=== PATIENT | female | born 1945 | race Caucasian/White ===

== ENCOUNTER 2024-04-17 06:36 | Day surgery (SDC) | payer MEDICARE, OTHER, SELFPAY ==
[2024-04-10 09:14] VITALS: BMI 27.7
--- NOTE | 2024-04-15 07:00 | EKG_ITS ---
[facility] Test Date: 2024-04-15 Pat Name: WANDA JANSEN Department: Room: - Gender: Female Special Education Associate: JOSEPH : 1945 Requested By: Michael Guillen Order Number: [id number] Reading MD: Michael Guillen Measurements Intervals [place] Rate: 63 P: 55 [place]: 162 QRS: -13 QRSD: 93 T: 48 QT: 395 QTc: 404 Interpretive Statements SINUS RHYTHM No previous ECG available for comparison /store/S0/[id number]
[2024-04-15 10:23] LABS: COVID-19 Antigen (In-House) Negative (Negative)
[2024-04-17] VITALS (14 sets, daily range): BP systolic 152–195; BP diastolic 66–90; PULSE 51–68; RESP 13–19; TEMP 36.4–37.1; O2SAT 92–99; BMI 28.4
[2024-04-17 07:05] LABS: Basophils # (Auto) 0.1 Thou/mm3 (0.0-0.2); Basophils % (Auto) 1 % (0-2.5); Eosinophils # (Auto) 0.7 Thou/mm3 (0.0-0.5); Eosinophils % (Auto) 6 % (0-10); Hematocrit 43.3 % (36.0-46.0); Hemoglobin 14.5 g/dL (12.0-16.0); Immature Granulocytes % (Auto) 0 % (0-0); Immature Granulocytes Auto 0.04 Thou/mm3 (0.00-0.00); Lymphocytes # (Auto) 2.8 Thou/mm3 (1.0-4.8); Lymphocytes % (Auto) 24 % (10-50); Mean Corpuscular HGB Conc 33.5 g/dl (31.0-37.0); Mean Corpuscular Hemoglobin 29.7 pg (25.0-35.0); Mean Corpuscular Volume 89 fL (80-100); Monocytes # (Auto) 1.1 Thou/mm3 (0.0-0.8); Monocytes % (Auto) 9 % (0-12); Neutrophils # (Auto) 7.3 Thou/mm3 (1.8-7.7); Neutrophils % (Auto) 60 % (37-80); Nucleated Red Blood Cell % 0 /100 WBC (0); Platelet Count 382 Thou/mm3 (140-440); RDW Standard Deviation 41.1 fL (36.4-46.3); Red Blood Count 4.89 Miln/mm3 (4.00-5.20)
[2024-04-17 07:27] LABS: Partial Thromboplastin Time 27.6 Seconds (22.0-36.0); Prothrombin Time 10.9 Seconds (9.0-12.2)
[2024-04-17 07:29] LABS: Anion Gap 7 (7-16); BUN/Creatinine Ratio 27 Ratio (12-20); Blood Urea Nitrogen 27 mg/dL (9-23); Calcium 9.6 mg/dL (8.3-10.6); Carbon Dioxide 26.2 mMol/L (20.0-31.0); Chloride 107 mMol/L (98-107); Estimated Creatinine Clearance 48.5 mL/min (>60); Glucose 169 mg/dL (74-106); Osmolality,Calculated 288 (275-295); Sodium 140 mMol/L (136-145); eGFR 57 See Note
[2024-04-17] MEDS: SODIUM CHLORIDE 0.45 % 100 ML IV (07:30)
[2024-04-17] MEDS: SODIUM CHLORIDE 0.45 % 500 ML 160 ML IV (08:05)
--- NOTE | 2024-04-17 08:07 | PD.CARDCATH ---
Cardiac Cath Procedure Procedure Narrative Date of the procedure 04/17/2024 Title of the procedure 1. Left heart catheterization 2. Left coronary angiogram 3. Right coronary angiogram 4. Left ventriculogram 5. Conscious sedation 6. Radiographic interpretation supervision 7. Ultrasound guidence for Right radial access Indication for the procedure This is a 79-year-old female with past medical history of hypertension hyperlipidemia Currently planning to undergo knee surgery Patient was complaining of atypical chest pain Cardiolite stress test was abnormal cardiac catheter and coronary angiogram recommended Procedure This is done in the cardiac lab under continuous electrocardiographic monitoring Intermittent blood pressure monitoring right radial arterial access obtained using modified Seldinger technique 6 Romanian radial sheath was placed under ultrasound guidence TIG catheter was used for selective injection of the Left coronary artery TIG cather was used for selective injection of the Right coroanry artery TIG cather was used for LV gram Findings Hemodynamics Left ventricular systolic function is 55% Left ventricular end-diastolic pressure is 18 mmHg Gradient across the aortic valve is 0 mm gradient Coronary anatomy Co-Dominance Left main coronary artery is Normal Left anterior descending artery is Luminal irregularities in the mid to distal segment Diagonal vessel is Luminal irregularities Left circumflex artery is Normal Obtuse marginal vessel is Luminal regularities Right coronary artery is 20% lesion approximately Posterior descending artery is Luminal irregularities Conclusion No significant coronary lesion Recommendation Continue medical management
--- NOTE | 2024-04-17 10:00 | PC.NURSE ---
TR band removed at this time. Surgical site asymptomatic, no active bleeding, no hematoma noted on right upper extremity or around the surgical site. Capillary refill < 3 seconds. No noted changes in color or temperature on right upper extremity. Patient denies general and localized pain, no loss in sensation, no tingling or numbness felt to right upper extremity. Tagaderm and Coban wrap applied. Will continue to monitor
--- NOTE | 2024-04-17 10:30 | PC.NURSE ---
Surgical site remains asymptomatic, no active bleeding, no hematoma noted on right upper extremity or around the surgical site. Capillary refill < 3 seconds. No noted changes in color or temperature on right upper extremity. Patient denies generalized and localized pain, no loss in sensation, no tingling or numbness felt to right upper extremity. Tagaderm and Coban wrap in place, clean, and dry. Will continue to monitor
== END 2024-04-17 11:46 | disposition home or self-care (01) ==
PROVIDERS: PCP Family Medicine; Referring Provider Internal Medicine; Visit Provider Internal Medicine
PROC: (CPT 93458; principal; 2024-04-17 07:45)
DX: I25.118 Atherosclerotic heart disease of native coronary artery with other forms of angina pectoris (principal); E78.5 Hyperlipidemia, unspecified; I10 Essential (primary) hypertension; Z01.810 Encounter for preprocedural cardiovascular examination
CPT/HCPCS: 93458; 36415; 80048; 85025; 85610; 85730; 87811; 93005; 99152; A4216; A4649; C1769; C1887; C1894; J0171; J0461; J0583; J1643; J2250; J2310; J2371; J3010; J3490; J7030; J7040; Q9967; J1644; J2305

== ENCOUNTER 2024-04-18 09:37 | Outpatient (AMB) | payer MEDICARE, OTHER, SELFPAY ==
[2024-04-18 10:05] VITALS: BP 157/84; PULSE 71; RESP 18; TEMP 36.6; O2SAT 95; BMI 28.3
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
== END 2024-04-18 10:34 | disposition home or self-care (01) ==
LOC: HODSRG 09:37
PROVIDERS: PCP Family Medicine; Referring Provider Family Medicine; Supervising Provider Orthopaedic Surgery Adult Reconstructive Orthopaedic Surgery; Visit Provider Orthopaedic Surgery Adult Reconstructive Orthopaedic Surgery
DX: M17.11 Unilateral primary osteoarthritis, right knee (principal); M25.561 Pain in right knee; I10 Essential (primary) hypertension; E78.00 Pure hypercholesterolemia, unspecified
CPT/HCPCS: 73564; 99203; G0463

== ENCOUNTER → 2024-04-18 | Outpatient (CLI) | payer MEDICARE, OTHER, SELFPAY ==
--- NOTE | 2024-04-18 11:22 | XR_ITS ---
Examination: Right knee 4 views TECHNIQUE: Standing AP oblique lateral axial right knee 4 views Exam date and time: April 18, 2024 1135 hours INDICATIONS: Right knee pain years. FINDINGS: Advanced tricompartment osteoarthritis, severe narrowing lateral joint space [id number] No fracture or dislocation Small knee effusion IMPRESSION: Advanced tricompartment osteoarthritis, including severe narrowing lateral joint space, [id number]
== END | disposition home or self-care (01) ==
PROVIDERS: PCP Family Medicine; Referring Provider Orthopaedic Surgery Adult Reconstructive Orthopaedic Surgery; Visit Provider Orthopaedic Surgery Adult Reconstructive Orthopaedic Surgery
DX: M17.11 Unilateral primary osteoarthritis, right knee (principal); M25.861 Other specified joint disorders, right knee
CPT/HCPCS: 73564

== ENCOUNTER 2024-05-02 10:41 | Outpatient (AMB) | payer MEDICARE, OTHER, SELFPAY ==
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
[2024-05-02 11:01] VITALS: BP 171/94; PULSE 64; RESP 18; TEMP 36.1; O2SAT 96; BMI 28.0
== END 2024-05-02 11:04 | disposition home or self-care (01) ==
PROVIDERS: PCP Family Medicine; Referring Provider Family Medicine; Supervising Provider Orthopaedic Surgery Adult Reconstructive Orthopaedic Surgery; Visit Provider Orthopaedic Surgery Adult Reconstructive Orthopaedic Surgery
DX: M17.11 Unilateral primary osteoarthritis, right knee (principal); M25.561 Pain in right knee; I10 Essential (primary) hypertension; E78.00 Pure hypercholesterolemia, unspecified
CPT/HCPCS: 99213; G0463

== ENCOUNTER → 2024-05-05 | Outpatient (CLI) | payer MEDICARE, OTHER, SELFPAY ==
--- NOTE | 2024-05-05 15:00 | XR_ITS ---
Examination: CT right lower extremity, without contrast. 2-D sagittal reconstructions. 2-D coronal reconstructions. 3-D reconstructions. Date and time of exam:May 05, 2024 1649 hours INDICATIONS: Right knee pain several years diagnosis unilateral primary osteoarthritis right knee CTDI: vol (mGy):14.5 DLP: (mGycm):1002 Technique: Multiple 1.25 mm axial sections of the right lower extremity without intravenous contrast have been obtained. 2-D sagittal and coronal reconstructions have been obtained. 3-D reconstructions have been obtained. Low dose protocols were performed. One or more of the following dose reduction techniques were used; automated exposure control, adjustment of the mA and/or KV according to patient size, use of iterative reconstruction technique. Findings: Moderate osteopenia Moderate narrowing right hip joint No right hip fracture or dislocation No avascular necrosis Advanced osteoarthritis narrowing medial lateral joint spaces, more severe lateral joint space Moderate narrowing patellofemoral joint with mild chronic lateral subluxation patella IMPRESSION: Moderate to advanced right knee tricompartment osteoarthritis, most severe lateral joint space
== END | disposition home or self-care (01) ==
PROVIDERS: PCP Family Medicine; Referring Provider Orthopaedic Surgery Adult Reconstructive Orthopaedic Surgery; Visit Provider Orthopaedic Surgery Adult Reconstructive Orthopaedic Surgery
DX: M17.11 Unilateral primary osteoarthritis, right knee (principal)
CPT/HCPCS: 73700

== ENCOUNTER 2024-05-12 08:30 | Day surgery (SDC) | payer MEDICARE, OTHER, SELFPAY ==
[2024-05-06 07:46] VITALS: BMI 28.0
[2024-05-06 09:03] LABS: Basophils % (Auto) 0 % (0-2.5); Eosinophils # (Auto) 0.4 Thou/mm3 (0.0-0.5); Eosinophils % (Auto) 3 % (0-10); Hematocrit 43.3 % (36.0-46.0); Hemoglobin 14.6 g/dL (12.0-16.0); Immature Granulocytes % (Auto) 0 % (0-0); Immature Granulocytes Auto 0.05 Thou/mm3 (0.00-0.00); Lymphocytes # (Auto) 2.3 Thou/mm3 (1.0-4.8); Lymphocytes % (Auto) 19 % (10-50); Mean Corpuscular HGB Conc 33.7 g/dl (31.0-37.0); Mean Corpuscular Hemoglobin 29.5 pg (25.0-35.0); Mean Corpuscular Volume 88 fL (80-100); Monocytes # (Auto) 1.1 Thou/mm3 (0.0-0.8); Monocytes % (Auto) 9 % (0-12); Neutrophils # (Auto) 8.1 Thou/mm3 (1.8-7.7); Neutrophils % (Auto) 68 % (37-80); Nucleated Red Blood Cell % 0 /100 WBC (0); Platelet Count 401 Thou/mm3 (140-440); RDW Standard Deviation 39.9 fL (36.4-46.3); Red Blood Count 4.95 Miln/mm3 (4.00-5.20); White Blood Count 11.9 Thou/mm3 (3.6-11.0)
[2024-05-06 09:07] LABS: Partial Thromboplastin Time 26.9 Seconds (22.0-36.0); Prothrombin Time 11.3 Seconds (9.0-12.2)
[2024-05-06 09:34] LABS: Alanine Aminotransferase 11 U/L (10-49); Albumin, Serum 4.7 gm/dL (3.4-4.8); Albumin/Globulin Ratio 1.7 (1.2-2.2); Alkaline Phosphatase 91 U/L (46-116); Anion Gap 9 (7-16); Aspartate Amino Transferase 12 U/L (0-34); BUN/Creatinine Ratio 19 Ratio (12-20); Bilirubin,Total 0.6 mg/dL (0.3-1.2); Blood Urea Nitrogen 17 mg/dL (9-23); Calcium 10.2 mg/dL (8.3-10.6); Calcium (Corrected) 10.2 mg/dL (8.5-10.1); Carbon Dioxide 27.5 mMol/L (20.0-31.0); Chloride 104 mMol/L (98-107); Creatinine (Component) 0.9 mg/dL (0.6-1.3); Estimated Creatinine Clearance 54.7 mL/min (>60); Globulin 2.7 gm/dL (2.3-3.5); Glucose 135 mg/dL (74-106); Osmolality,Calculated 282 (275-295); Potassium 4.5 mMol/L (3.4-5.1); Sodium 140 mMol/L (136-145); Total Protein 7.4 gm/dL (5.7-8.2); eGFR > 60 See Note
--- NOTE | 2024-05-09 15:25 | SUR.PREOP ---
Cardiac records reviewed with Dr Alarcon.
--- NOTE | 2024-05-09 15:25 | SUR.PREOP ---
WBC 11.9, Dr Recinos notified and ok to proceed with surgery.
[2024-05-12] VITALS (17 sets, daily range): BP systolic 113–158; BP diastolic 56–94; PULSE 56–71; RESP 12–20; TEMP 36.2–37.2; O2SAT 94–100; BMI 27.8; BMI 13.0
[2024-05-12] MEDS: ACETAMINOPHEN 325 MG TABLET 650 MG PO (09:29)
[2024-05-12] MEDS: MELOXICAM 7.5 MG TABLET PO (09:30)
[2024-05-12] MEDS: PREGABALIN 75 MG CAPSULE PO (09:30)
[2024-05-12] MEDS: RINGERS LACTATED 1000 ML 1,000 ML 20 ML IV (09:32)
--- NOTE | 2024-05-12 12:19 | XR_ITS ---
Examination: Right knee 2 views Technique one AP lateral right knee 2 views Exam date and time: May 12, 2024 1306 hours INDICATIONS: Postop total knee replacement FINDINGS: Total right knee replacement Satisfactory alignment No fracture IMPRESSION: Total right knee replacement with satisfactory alignment
--- NOTE | 2024-05-12 12:19 | PD.SUROPNT ---
Date of Procedure 05/12/24 Pre Op Diagnosis right knee osteoarthritis Post Op Diagnosis right knee osteoarthritis Procedure right total knee replacement Findings full thickness cartilage loss and osteophytes Procedure Description Indication: The patient is a 79 year old who has a long history of right knee pain. X-rays show degenerative arthritis involving the knee. Over the past several years the patient has had increasing pain, progressive limitation in function. He has failed conservative measures including activity modification, physical therapy, injections, anti-inflammatories, and assistive devices. After a lengthy discussion of the risks and benefits, the patient presents now for total knee replacement. The nature and purpose of the total knee replacement, alternative method(s) of treatment, the material risks involved, and the possibility of complications were fully explained to the patient. The patient was told the most common risks and complications associated with a total knee replacement include, but are not limited to blood clots in the leg, fatal pulmonary embolism, dislocation of the prosthesis, intraoperative and postoperative fractures of the femur or tibia, infection, failure of the prosthesis or grafting materials, complications from anesthesia, reactions to blood transfusions, postoperative leg length inequality, instability of the knee replacement, nerve damage or injury, vascular injury, delayed wound healing, infections, other injury or even . In addition, there are risks associated with anesthesia given during this operation, temporary or permanent numbness on the skin lateral to the incision can be a complication unique to total knee surgery, and kneeling can be painful after knee replacement surgery. Also, the patient was told that after undergoing a total knee replacement there may still be pain or disability. We discussed with the patient that we will be using a robot-assisted technology. We discussed that there is a possibility of converting to manual instrumentation. The patient was informed that the success of this operation in part depends upon the mechanical devices which are going to be implanted and that these devices can fail or malfunction, and may need to be repaired or replaced and there are no guarantees as to the longevity of this device or its part and that it or its parts could fail prematurely. Finally, the patient was asked to follow completely and fully with all advice and recommended treatments, and that recovery and ultimate outcome are affected by their compliance with recommended treatment. Surgical technique: Patient was marked and consented in the pre-operative area. The patient was brought to the operating room and placed on the operating table in a supine position. Prior to positioning, a timeout procedure was performed between the surgeon, the anesthesiologist, and the nursing staff where the patient and the operative side were identified and confirmed. After adequate general anesthetic was obtained, the right lower extremity was prepped and draped in the usual sterile fashion. A weight based dose of Cefazolin were administered within 1 hour prior to incision. The robot was preregistered and calirated before the incision. The extremity was exsanguinated with an esmarch badge and tourniquet inflated to 250mmHg. A midline incision was made. A median parapatellar arthrotomy was made. The patella was subluxed laterally. A medial release was performed to expose the medial tibia. His femoral and tibial pins were placed through an intra incisional manner for both cases. Every effort was made to ensure that the distalmost aspect of the pin was hung in the second cortex. The arrays were then tightened several times to ensure that it was fixed for the remainder of the case. Both femoral and tibial checkpoints were then placed. We then went through the registration process of the bone. We then assessed the knee deformity and attempted to correct it. We also used the robot to aid in judging laxity in both extension and flexion. Final based on laxity and alignment we changed the preoperative assessment to obtain proper proper implant positioning and to correct deformity. Attention was then placed to the tibia. We made a tibial cut using the robot ensuring that both the MCL and the patella tendon were protected with retractors. We then went to the femur and made the posterior cut followed by the anterior cut and the anterior chamfer. The bone was then removed and we made a distal femur cut and a posterior chamfer cut. We verified all cuts. A trial reduction was performed with a size 4 femoral component and a size 4 keeled tibial component. The patella tracked centrally, and no lateral retinacular release was necessary. The trial implants were removed. The arrays, pins, and checkpoints were all removed. We performed a verification that all pins were removed. The cut bone surfaces were lavaged. A size 4 right femoral component, a size 4 keeled tibial component were impacted into position using 2 bags of palacos. The knee was placed in extension until the cement hardened. The knee was felt to be well balanced in the sagittal and coronal plane. The final 4x11 mm cruciate-substituting articular insert was impacted into the tibial tray. The knee was brought out to full extension, flexed up to 120 degrees. It was stable to varus and valgus stress and appropriately balanced in flexion and extension. The wounds were copiously irrigated following deflation of tourniquet. The medial retinaculum was reapproximated with #1 vicryl and quill. The subcutaneous tissues were closed with 0 and 2-0 interrupted Vicryl. The skin was closed with 3-0 Monofilament V loc suture. A sterile dressing was applied. The patient was transferred to a bed and brought to recovery in stable condition. The patient tolerated the procedure well. There were no intraoperative complications. Sponge and needle counts were correct times 2. As the attending surgeon, I attest I was present and performed the entire operation. Grafts/Implants Size 4 CR Femur Size 4 Tibia 11mm poly CS 2 bags of palacos Anesthesia GETA Implants darryl Pathology / specimen None Pathology comment: none Estimated Blood Loss 150 Condition Stable Disposition same day Surgeon Mikie Recinos MD Surgical Staff Operation Date: 05/12/24 12:30 Case Staff Anesthesiologist: Alex Boss FLIGHT LINE MECHANIC: Guillermo Martinez RNbuffing wheel inspector: Cat Palafox
--- NOTE | 2024-05-12 12:43 | SUR.PHASEI ---
1243 Patient arrived to recovery resting comfortably in bed, drowsy and talking with staff, on oxygen 6L via oxy mask, breathing unlabored, vital signs stable, denies pain, dressing intact to right knee; prineo, telfa, abd, webril, melissa wraps, no bleeding noted, patient has good circulation to right lower extremity; skin color normal for patient and skin warm to touch, bilateral dorsalis pedis pulses present when palpated, post spinal anesthesia assessment complete patient has dermatome sensation at L4-patella, will monitor, report received from Dr. Boss and Gabriel MELENDREZ
--- NOTE | 2024-05-12 13:14 | SUR.PHASEI ---
1314 XRAY complete per MD order
--- NOTE | 2024-05-12 13:24 | SUR.PHASEI ---
0324 Called patients daughter to notify that patient is out of surgery doing well, all questions answered
--- NOTE | 2024-05-12 13:58 | SUR.PHASEI ---
1350 post spinal anesthesia assessment complete patient has dermatome sensation at S2 perineum
--- NOTE | 2024-05-12 14:00 | SUR.PHASEI ---
1400 patient working with incentive spirometer
--- NOTE | 2024-05-12 14:43 | SUR.PHASEII ---
patient attempted to work with physical therapy patient knee buckling, incomplete session, PT will try again in one hour
--- NOTE | 2024-05-12 15:43 | SUR.PHASEII ---
1543 patient cleared by physical therapy to proceed with discharge
--- NOTE | 2024-05-12 16:14 | SUR.PHASEII ---
1614 Patient meets discharge criteria from recovery, awake and alert, breathing unlabored, vital signs stable, denies pain, dressing intact; no bleeding noted, patient voided in the restroom prior to discharge, denies nausea, patient assisted with dressing into her clothing by this ticket writer, discharge instructions given to patient and patient daughter, daughter signed discharge instructions. Patient given all her belongings prior to discharge, transported via wheelchair and left in a private vehicle.
== END 2024-05-12 16:14 | disposition home or self-care (01) ==
PROVIDERS: Anesthesiology; PCP Family Medicine; Referring Provider Orthopaedic Surgery Adult Reconstructive Orthopaedic Surgery; Visit Provider Orthopaedic Surgery Adult Reconstructive Orthopaedic Surgery
PROC: (CPT 27447; principal; 2024-05-12 12:15)
DX: M17.11 Unilateral primary osteoarthritis, right knee (principal); M25.761 Osteophyte, right knee
CPT/HCPCS: 27447; 20985; 36415; 73560; 80053; 85025; 85610; 85730; 97162; A4217; C1713; C1776; J1100; J2250; J2405; J2704; J2795; J3490; J7030; J7120; J7999; A4648; A4649; A9270

== ENCOUNTER 2024-05-27 09:43 | Outpatient (AMB) | payer MEDICARE, OTHER, SELFPAY ==
[2024-05-27 10:26] VITALS: BP 138/83; PULSE 70; RESP 18; TEMP 36.7; O2SAT 97; BMI 27.1
--- NOTE | 2024-05-27 10:26 | PD.ORTHCLVIS ---
Vital signs 05/27/24 10:26 Height 1.7 m Height Method Stated Weight 78.528 kg Weight Measurement Method Standing Scale BMI 27.1 BP 138/83 H Blood Pressure Source Automatic Cuff Blood Pressure Location Right Upper Arm Position Sitting Respiration 18 Pulse 70 Pulse Source Monitor Temp 98.0 F Temp Source Temporal Artery Scan Pulse Oximetry (%) 97 Oxygen Delivery Method Room Air Med/Allergies Allergies & Medications Allergies No Known Allergies Allergy (Verified 05/27/24 10:27) Medication Reconciliation garlic 1,500 mg capsule 2,000 mg PO BID ##0 10/21/15 [History Confirmed 05/27/24] lisinopril 40 mg tablet 40 mg PO QDAY 04/17/24 [History Confirmed 05/27/24] calcium carbonate (Calcium 600) 1,200 mg PO QDAY 05/06/24 [History Confirmed 05/27/24] diltiazem HCl 240 mg capsule,24 hr,extended release (Tiadylt ER) 240 mg PO DAILY 05/06/24 [History Confirmed 05/27/24] omega 0-rrt-sjd-fish oil 1,200 mg (144 mg-216 mg) capsule (Fish Oil) 1 cap PO DAILY 05/06/24 [History Confirmed 05/27/24] plant stanol ronan 450 mg tablet 450 mg PO BID 05/06/24 [History Confirmed 05/27/24] acetaminophen 500 mg tablet (Acetaminophen Extra Strength) 1,000 mg (2 x 500 mg) PO Q6H PRN pain #90 tabs 05/12/24 [Rx Confirmed 05/27/24] aspirin 81 mg tablet,delayed release 81 mg PO BID #60 tabs 05/12/24 [Rx Confirmed 05/27/24] doxycycline hyclate 100 mg tablet 100 mg PO BID #14 tabs 05/12/24 [Rx Confirmed 05/27/24] gabapentin 300 mg capsule 300 mg PO .qhs #30 caps 05/12/24 [Rx Confirmed 05/27/24] oxycodone 5 mg tablet 5 mg PO Q6H PRN pain #28 tabs 05/12/24 [Rx Confirmed 05/27/24] sennosides 8.6 mg-docusate sodium 50 mg tablet (Senna-S) 1 tab-cap PO QDAY #30 tabs 05/12/24 [Rx Confirmed 05/27/24] Exam Exam Patient is in no acute distress and is cooperative with the examination today. Breathing is nonlabored. In no respiratory distress. Bilateral extremities were evaluated and demonstrates sensation intact to light touch. Palpable pedal pulses are present. No significant edema is present. Bilateral hips were examined. The patient has no pain with log roll of the hips. Internal rotation to 30 degrees and external rotation to 30 degrees is painless. Negative FADIR. Left knee was examined today. The right knee is in reasonable alignment. Range of motion from 0-120 degrees. Knee is stable to varus and valgus as well as AP translation with <5mm. Patient has a negative McMurrays. There is no pain with patellofemoral compression and no crepitus noted. The knee is nontender to palpation. Right knee incision is clean dry and intact. 0-100 Assessment and Plan Problem List (1) Arthritis of right knee: Status: Acute Plan: Patient is a pleasant 79-year-old female with right knee pain and right knee arthritis. Right total knee replacement is in good alignment and position. She is happy Plan Patient is doing well status post right total knee replacement. Will see her in 4 to 5 weeks for routine follow-up with x-rays. She is happy with her progress Advanced Care Planning Discussion Advance care planning discussed with:: patient Office Procedures GNS Level of Care Nursing/Assessment Patient Status: Established Patient Nursing Assessment/Reassesment: Medication Reconciliation, Update PMH in EMR and Vital Signs Coordination of Care: Complex Care and Chronic Disease 1-5, Education Complex Pt/Fam, Consent,records obtained, informed consent, Results/Orders obtained and Staff clarify orders Established Patient Charge Established Patient Point Assignment: 95 Established Patient Point Charge: EP Level 3 (80-115) MA Intake Visit Data Collection New Patient or Established: Established Patient (seen at [facility] within 3 years) Reason for Visit:: POST OP RT TKA Seen by Clinical Staff ONLY (RN/MA): No Verbal consent obtained for Telemed visit?: No 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: No PCP or OBGYN visit in last 3 months: Yes Hx Now: No Do You Feel Safe at Home: Yes Authorities Contacted: N/A Questionairres Past Medical History Past Medical History Have you ever been diagnosed with any of the following: Neurological Problems Seizures: No Cardiology Problems Hypercholesterolemia: Yes Congestive Heart Failure: No Hypertension: Yes Varicose Veins: Yes Respiratory Problems Chronic Obstructive Pulmonary Disease (COPD): No Smoking: No Smoking Exposure: No Genital/Urinary Problems Renal Disease: No Reproductive Problems Previous Pregnancies: Yes Musculoskeletal Problems Arthritis: Yes Head,Eye,Nose,Throat Problems Deafness: Yes ([place]) Endocrine Problems Diabetes Mellitus Type 1: No Diabetes Mellitus Type 2: No Other Problems Blood Transfusions: No Blood Transfusion Reaction: No Anesthesia Reactions: No MRSA: No Clostridium Difficile: No Cancer: No Surgical History Hysterectomy: Yes Subjective Visit Visit for: follow up visit, post op #1 and knee Immunization / Flu Flu Vaccine in the Last 12 Months: Yes Flu Vaccine Exclusion Criteria: Already Received History of Present Illness Chief complaint: 2 WEEK POST OP Jasmina is doing well status post right total knee replacement. She is 2 months postop. The pain is minimal and she is happy Pain Pain level (0-10): 5 Pain duration: COMES AND GOES Pain location: anterior Pain quality: dull and aching Pain timing: increases with activity Associated signs & symptoms: numbness Ambulatory data Ambulatory device: cane Treatments Improvement with previous injections: No Improvement with PT: No Improvement with NSAIDS: no Review of Systems Review of Systems: All systems negative unless otherwise noted in HPI.
== END 2024-05-27 10:52 | disposition home or self-care (01) ==
PROVIDERS: PCP Family Medicine; Referring Provider Family Medicine; Supervising Provider Orthopaedic Surgery Adult Reconstructive Orthopaedic Surgery; Visit Provider Orthopaedic Surgery Adult Reconstructive Orthopaedic Surgery
DX: M17.11 Unilateral primary osteoarthritis, right knee (principal); M25.561 Pain in right knee; Z96.651 Presence of right artificial knee joint; I10 Essential (primary) hypertension; E78.00 Pure hypercholesterolemia, unspecified
CPT/HCPCS: 99213; G0463

== ENCOUNTER → 2024-06-19 | Outpatient (CLI) | payer MEDICARE, OTHER, SELFPAY ==
--- NOTE | 2024-06-19 08:54 | XR_ITS ---
Examination: Right knee 4 views Technique: AP oblique lateral axial right knee 4 views Exam date and time: June 19, 2024 0901 hrs. Indications: Status post knee replacement April 2024 Findings: Total right knee arthroplasty. Satisfactory alignment No acute fracture No loosening of the prosthetic components No patellar dislocation Impression: Total right knee arthroplasty with satisfactory alignment
== END | disposition home or self-care (01) ==
LOC: CDIM 08:39
PROVIDERS: PCP Family Medicine; Referring Provider Orthopaedic Surgery Adult Reconstructive Orthopaedic Surgery; Visit Provider Orthopaedic Surgery Adult Reconstructive Orthopaedic Surgery
DX: M17.11 Unilateral primary osteoarthritis, right knee (principal); Z96.651 Presence of right artificial knee joint
CPT/HCPCS: 73564

== ENCOUNTER 2024-07-01 09:38 | Outpatient (AMB) | payer MEDICARE, OTHER, SELFPAY ==
--- NOTE | 2024-07-01 10:02 | PD.ORTHCLVIS ---
Vital signs 07/01/24 10:05 Height 1.7 m Height Method Stated Weight 79.01 kg Weight Measurement Method Standing Scale BMI 27.3 BP 183/79 H Blood Pressure Source Automatic Cuff Blood Pressure Location Right Upper Arm Position Sitting Respiration 18 Pulse 67 Pulse Source Monitor Temp 97.8 F Temp Source Temporal Artery Scan Pulse Oximetry (%) 95 Oxygen Delivery Method Room Air Med/Allergies Allergies & Medications Allergies No Known Allergies Allergy (Verified 07/01/24 10:06) Medication Reconciliation garlic 1,500 mg capsule 2,000 mg PO BID ##0 10/21/15 [History Confirmed 07/01/24] lisinopril 40 mg tablet 40 mg PO QDAY 04/17/24 [History Confirmed 07/01/24] calcium carbonate (Calcium 600) 1,200 mg PO QDAY 05/06/24 [History Confirmed 07/01/24] diltiazem HCl 240 mg capsule,24 hr,extended release (Tiadylt ER) 240 mg PO DAILY 05/06/24 [History Confirmed 07/01/24] omega 4-ctw-mhl-fish oil 1,200 mg (144 mg-216 mg) capsule (Fish Oil) 1 cap PO DAILY 05/06/24 [History Confirmed 07/01/24] plant stanol ronan 450 mg tablet 450 mg PO BID 05/06/24 [History Confirmed 07/01/24] acetaminophen 500 mg tablet (Acetaminophen Extra Strength) 1,000 mg (2 x 500 mg) PO Q6H PRN pain #90 tabs 05/12/24 [Rx Confirmed 07/01/24] aspirin 81 mg tablet,delayed release 81 mg PO BID #60 tabs 05/12/24 [Rx Confirmed 07/01/24] doxycycline hyclate 100 mg tablet 100 mg PO BID #14 tabs 05/12/24 [Rx Confirmed 07/01/24] gabapentin 300 mg capsule 300 mg PO .qhs #30 caps 05/12/24 [Rx Confirmed 07/01/24] oxycodone 5 mg tablet 5 mg PO Q6H PRN pain #28 tabs 05/12/24 [Rx Confirmed 07/01/24] sennosides 8.6 mg-docusate sodium 50 mg tablet (Senna-S) 1 tab-cap PO QDAY #30 tabs 05/12/24 [Rx Confirmed 07/01/24] Exam Exam Patient is in no acute distress and is cooperative with the examination today. Breathing is nonlabored. In no respiratory distress. Bilateral extremities were evaluated and demonstrates sensation intact to light touch. Palpable pedal pulses are present. No significant edema is present. Bilateral hips were examined. The patient has no pain with log roll of the hips. Internal rotation to 30 degrees and external rotation to 30 degrees is painless. Negative FADIR. Left knee was examined today. The right knee is in reasonable alignment. Range of motion from 0-120 degrees. Knee is stable to varus and valgus as well as AP translation with <5mm. Patient has a negative McMurrays. There is no pain with patellofemoral compression and no crepitus noted. The knee is nontender to palpation. Right knee incision is clean dry and intact. 0-100 X-rays demonstrate a cemented right total knee replacement in good alignment and position Assessment and Plan Problem List (1) Arthritis of right knee: Status: Acute Plan: Patient is a pleasant 79-year-old female with right knee pain and right knee arthritis. Right total knee replacement is in good alignment and position. She is happy Plan Patient is doing well status post right total knee replacement. Advanced Care Planning Discussion Advance care planning discussed with:: patient Office Procedures GNS Level of Care Nursing/Assessment Patient Status: Established Patient Nursing Assessment/Reassesment: Medication Reconciliation, Update PMH in EMR and Vital Signs Coordination of Care: Complex Care and Chronic Disease 1-5, Education Complex Pt/Fam, Consent,records obtained, informed consent, Results/Orders obtained and Staff clarify orders Established Patient Charge Established Patient Point Assignment: 95 Established Patient Point Charge: EP Level 3 (80-115) MA Intake Visit Data Collection New Patient or Established: Established Patient (seen at [facility] within 3 years) Reason for Visit:: 5 WK POST OP RT TKA Seen by Clinical Staff ONLY (RN/MA): No Verbal consent obtained for Telemed visit?: No 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 PCP or OBGYN visit in last 3 months: Yes Hx Now: No Do You Feel Safe at Home: Yes Authorities Contacted: N/A Questionairres Past Medical History Past Medical History Have you ever been diagnosed with any of the following: Neurological Problems Seizures: No Cardiology Problems Hypercholesterolemia: Yes Congestive Heart Failure: No Hypertension: Yes Varicose Veins: Yes Respiratory Problems Chronic Obstructive Pulmonary Disease (COPD): No Smoking: No Smoking Exposure: No Genital/Urinary Problems Renal Disease: No Reproductive Problems Previous Pregnancies: Yes Musculoskeletal Problems Arthritis: Yes Head,Eye,Nose,Throat Problems Deafness: Yes ([place]) Endocrine Problems Diabetes Mellitus Type 1: No Diabetes Mellitus Type 2: No Other Problems Blood Transfusions: No Blood Transfusion Reaction: No Anesthesia Reactions: No MRSA: No Clostridium Difficile: No Cancer: No Surgical History Hysterectomy: Yes Subjective Visit Visit for: follow up visit, post op #1, post op #2 and knee Immunization / Flu Flu Vaccine in the Last 12 Months: No Flu Vaccine Exclusion Criteria: No Exclusion Criteria and Already Received History of Present Illness Chief complaint: 5 WK POST OP RT TKA Jasmina is doing well status post right total knee replacement. She is 2 months postop. The pain is minimal and she is happy Pain Pain level (0-10): 1 Pain duration: COMES AND GOES Pain location: anterior Pain quality: dull and aching Pain timing: increases with activity Associated signs & symptoms: numbness and none Ambulatory data Ambulatory device: cane and none Treatments Improvement with previous injections: No Improvement with PT: No Improvement with NSAIDS: no Review of Systems Review of Systems: All systems negative unless otherwise noted in HPI.
[2024-07-01 10:05] VITALS: BP 183/79; PULSE 67; RESP 18; TEMP 36.6; O2SAT 95; BMI 27.3
== END 2024-07-01 11:02 | disposition home or self-care (01) ==
LOC: HODSRG 09:38
PROVIDERS: PCP Family Medicine; Referring Provider Family Medicine; Supervising Provider Orthopaedic Surgery Adult Reconstructive Orthopaedic Surgery; Visit Provider Orthopaedic Surgery Adult Reconstructive Orthopaedic Surgery
DX: M17.11 Unilateral primary osteoarthritis, right knee (principal); Z96.651 Presence of right artificial knee joint; E78.00 Pure hypercholesterolemia, unspecified; I10 Essential (primary) hypertension
CPT/HCPCS: 99213; G0463

== ENCOUNTER → 2024-07-11 | Outpatient (CLI) | payer MEDICARE, OTHER, SELFPAY ==
--- NOTE | 2024-07-11 13:00 | XR_ITS ---
Examination: Thyroid sonography complete TECHNIQUE: Grayscale sonographic images thyroid lobes Exam date and time: July 11, 2024 1250 hours INDICATIONS: Thyroid sonogram October 31, 2021 upper pole right thyroid nodule 6 mm, 7 mm midpole nodule 4 mm, lower pole nodule 10 mm FINDINGS: Right thyroid 4.9 cm Upper pole nodule 8 x 9 mm Midpole nodule 5 x 4 mm Lower pole cystic solid nodule 9 x 7 mm Left thyroid 3.7 cm Upper pole cyst 7 x 5 mm Midpole nodule 3 x 3 mm Bilateral smaller thyroid nodules IMPRESSION: Thyroid nodules as above
--- NOTE | 2024-07-11 13:30 | XR_ITS ---
Examination: Screening digital mammography, bilateral Computer aided detection 3-D breast Tomosynthesis, bilateral Date and time of exam: July 11, 2024 at 1326 hours Compared to mammograms dating to May 07, 2018 Indication: Screening Technique: Nonmagnified MLO, CC views of the breasts to been obtained, reconstructed from 3-D Tomosynthesis images. R2 computer aided detection program utilized for evaluation of suspicious masses and/or abnormal calcifications. 3-D Tomosynthesis images obtained. Findings: The breasts are heterogeneously dense, which may obscure small masses More prominent focus of architectural distortion upper outer right breast Impression: BI-RADS Category 0: Incomplete: Need additional imaging evaluation More prominent focus architectural distortion upper outer right breast, recommend follow-up spot tomographic views upper outer quadrant right breast sonography follow-up to complete the workup
--- NOTE | 2024-07-11 13:45 | XR_ITS ---
Examination: Bone densitometry Date and time of exam:July 11, 2024 1342 hours INDICATIONS: Menopause age 49 calcium 20 years, family history, mother osteoporosis Technique: Lumbar spine and hip total bone mineralization values of an calculated. Peak reference and age match control results have been displayed. Findings: Lumbar spine total bone mineralization is1.435 gm/cm2. This is 3.5 standard deviations above peak reference. This is 6.2 standard deviations above age-matched controls. Hip total bone mineralization is 0.824 gm/cm2 This is 1.0 standard deviations below peak reference. This is 1.1 standard deviations above age-matched controls Impression: There is normal mineralization based on lumbar spine measurements. There is osteopenia based on hip measurements Lumbar mineralization is increased 2.7% compared with April 29, 2020 Hip mineralization is decreased 2.1% compared with April 29, 2020
== END | disposition home or self-care (01) ==
LOC: CDIM 12:31
PROVIDERS: PCP Family Medicine; Referring Provider Family Medicine; Visit Provider Family Medicine
DX: Z12.31 Encounter for screening mammogram for malignant neoplasm of breast (principal); R92.8 Other abnormal and inconclusive findings on diagnostic imaging of breast; M85.89 Other specified disorders of bone density and structure, multiple sites; E04.2 Nontoxic multinodular goiter
CPT/HCPCS: 76536; 77063; 77067; 77080

== ENCOUNTER → 2024-07-24 | Outpatient (CLI) | payer MEDICARE, OTHER, SELFPAY ==
--- NOTE | 2024-07-24 13:30 | XR_ITS ---
Examination: Breast ultrasound, unilateral, right complete Date and time of exam: July 24, 2024 1327 hours INDICATIONS: Right breast sonogram 2020 2:00 nodule 9 mm Technique: Real-time hebert scale ultrasonographic imaging performed right breast including all 4 quadrants as well as nipple retroareolar and axillary region. Findings: 2:00 circumscribed nodule 7 x 8 mm 6:00 hyperechoic nodule lobular margins 12 x 10 mm 10:00 cyst 3 x 5 mm IMPRESSION: BI-RADS Category 3: Probably benign findings. Recommend 1 additional 6 month right breast sonogram follow-up to document stability of multiple solid nodules described above
--- NOTE | 2024-07-24 14:15 | XR_ITS ---
Examination: Diagnostic digital mammography, unilateral, right Computer aided detection 3-D breast Tomosynthesis, unilateral Date and time of exam: July 24, 2024 1348 hours INDICATIONS: Mammogram July 11, 2024 more prominent focus architectural distortion upper outer right breast Technique: Nonmagnified MLO, CC views of the right breast have been obtained, reconstructed from 3-D Tomosynthesis images. R2 computer aided detection program utilized for evaluation of suspicious masses and/or abnormal calcifications. 3-D Tomosynthesis images obtained. Findings: The breast is heterogeneously dense, which may obscure small masses Architectural distortion is confirmed upper outer right breast Impression: BI-RADS category : Suspicious for malignancy Architectural distortion is confirmed upper outer right breast, biopsy is needed to exclude breast carcinoma This focus of architectural distortion is amenable to stereotactic breast biopsy for diagnosis
== END | disposition home or self-care (01) ==
LOC: CDIM 13:17
PROVIDERS: PCP Family Medicine; Referring Provider Student in an Organized Health Care Education/Training Program; Visit Provider Student in an Organized Health Care Education/Training Program
DX: R92.341 Mammographic extreme density, right breast (principal); N63.15 Unspecified lump in the right breast, overlapping quadrants; N63.12 Unspecified lump in the right breast, upper inner quadrant
CPT/HCPCS: 76641; 77061; 77065; G0279

== ENCOUNTER → 2024-08-21 | Outpatient (CLI) | payer MEDICARE, OTHER, SELFPAY ==
[2024-08-20 08:52] LABS: Basophils % (Auto) 0 % (0-2.5); Eosinophils # (Auto) 0.3 Thou/mm3 (0.0-0.5); Eosinophils % (Auto) 4 % (0-10); Hematocrit 43.5 % (36.0-46.0); Hemoglobin 14.6 g/dL (12.0-16.0); Immature Granulocytes % (Auto) 0 % (0-0); Immature Granulocytes Auto 0.02 Thou/mm3 (0.00-0.00); Lymphocytes % (Auto) 24 % (10-50); Mean Corpuscular HGB Conc 33.6 g/dl (31.0-37.0); Mean Corpuscular Hemoglobin 29.5 pg (25.0-35.0); Mean Corpuscular Volume 88 fL (80-100); Monocytes # (Auto) 0.9 Thou/mm3 (0.0-0.8); Monocytes % (Auto) 10 % (0-12); Neutrophils # (Auto) 5.2 Thou/mm3 (1.8-7.7); Neutrophils % (Auto) 62 % (37-80); Nucleated Red Blood Cell % 0 /100 WBC (0); Platelet Count 366 Thou/mm3 (140-440); RDW Standard Deviation 41.2 fL (36.4-46.3); Red Blood Count 4.95 Miln/mm3 (4.00-5.20); White Blood Count 8.4 Thou/mm3 (3.6-11.0)
[2024-08-20 08:57] LABS: INR 1.1 (0.9-1.3); Partial Thromboplastin Time 27.3 Seconds (22.0-36.0); Prothrombin Time 11.5 Seconds (9.0-12.2)
--- NOTE | 2024-08-21 08:30 | XR_ITS ---
Examination: Stereotactic guided vacuum assisted right breast biopsy with clip placement Specimen radiograph Date and time of exam:August 21, 2024 0943 hours INDICATIONS: Mammogram July 24, 2024 architectural distortion upper outer right breast Timeout performed, documenting correct patient, order, referring physician, patient's site and reason for procedure, allergies to medications Informed consent provided. Time out performed Technique: The lesion right breast was localized with a stereotactic apparatus. Local anesthesia was obtained after prepping the skin at the entrance site and applying sterile drape Maximum sterile barrier technique. 6 core biopsies were then obtained, vacuum assisted, stereotactically guided, at the lesion site. Specimens appear adequate. Stereotactic breast marker was introduced at the lesion site Estimated blood loss 2 cc. Patient tolerated the procedure well and appeared in satisfactory and stable condition at completion of the procedure Pathology report to follow Impression: Successful stereotactic breast biopsy as described above.
== END | disposition home or self-care (01) ==
LOC: CDIM 08-22 08:16
PROVIDERS: Radiology Diagnostic Radiology; PCP Family Medicine; Referring Provider Student in an Organized Health Care Education/Training Program; Visit Provider Student in an Organized Health Care Education/Training Program
DX: C50.411 Malignant neoplasm of upper-outer quadrant of right female breast (principal); Z17.0 Estrogen receptor positive status [ER+]; Z17.21 Progesterone receptor positive status; Z17.32 Human epidermal growth factor receptor 2 negative status; Z01.812 Encounter for preprocedural laboratory examination
CPT/HCPCS: 19081; 36415; 85025; 85610; 85730; A4648; A4649

== ENCOUNTER 2024-09-19 05:55 | Day surgery (SDC) | payer MEDICARE, OTHER, SELFPAY ==
[2024-09-18 08:12] VITALS: BMI 26.8
--- NOTE | 2024-09-18 08:36 | SUR.PREOP ---
Transport is picking up pt at 0730 for mammogram.
[2024-09-18 09:15] LABS: Basophils % (Auto) 0 % (0-2.5); Eosinophils # (Auto) 0.3 Thou/mm3 (0.0-0.5); Eosinophils % (Auto) 3 % (0-10); Hemoglobin 14.2 g/dL (12.0-16.0); Immature Granulocytes % (Auto) 0 % (0-0); Immature Granulocytes Auto 0.03 Thou/mm3 (0.00-0.00); Lymphocytes % (Auto) 23 % (10-50); Mean Corpuscular HGB Conc 33.8 g/dl (31.0-37.0); Mean Corpuscular Hemoglobin 28.7 pg (25.0-35.0); Mean Corpuscular Volume 85 fL (80-100); Monocytes # (Auto) 0.8 Thou/mm3 (0.0-0.8); Monocytes % (Auto) 9 % (0-12); Neutrophils # (Auto) 5.5 Thou/mm3 (1.8-7.7); Neutrophils % (Auto) 65 % (37-80); Nucleated Red Blood Cell % 0 /100 WBC (0); Platelet Count 329 Thou/mm3 (140-440); RDW Standard Deviation 40.7 fL (36.4-46.3); Red Blood Count 4.94 Miln/mm3 (4.00-5.20); White Blood Count 8.6 Thou/mm3 (3.6-11.0)
[2024-09-18 09:17] LABS: Alanine Aminotransferase 10 U/L (10-49); Albumin, Serum 4.2 gm/dL (3.4-4.8); Albumin/Globulin Ratio 1.8 (1.2-2.2); Alkaline Phosphatase 94 U/L (46-116); Anion Gap 10 (7-16); Aspartate Amino Transferase 15 U/L (0-34); BUN/Creatinine Ratio 17 Ratio (12-20); Bilirubin,Total 0.4 mg/dL (0.3-1.2); Blood Urea Nitrogen 15 mg/dL (9-23); Carbon Dioxide 26.5 mMol/L (20.0-31.0); Chloride 107 mMol/L (98-107); Creatinine (Component) 0.9 mg/dL (0.6-1.3); Estimated Creatinine Clearance 53.5 mL/min (>60); Globulin 2.3 gm/dL (2.3-3.5); Glucose 154 mg/dL (74-106); Osmolality,Calculated 288 (275-295); Potassium 4.4 mMol/L (3.4-5.1); Sodium 143 mMol/L (136-145); Total Protein 6.5 gm/dL (5.7-8.2); eGFR > 60 See Note
[2024-09-18 09:45] LABS: Prothrombin Time 11.1 Seconds (9.0-12.2)
[2024-09-19] VITALS (8 sets, daily range): BP systolic 138–182; BP diastolic 66–78; PULSE 54–92; RESP 12–19; TEMP 36.2–36.3; O2SAT 95–100; BMI 182.1
--- NOTE | 2024-09-19 06:45 | XR_ITS ---
Examination: Mammogram breast tissue specimen TECHNIQUE: Single mammographic view breast tissue specimen Date and time: September 19, 2024 1421 hours INDICATIONS: Postop surgical resection positive positive for carcinoma lesion upper outer right breast FINDINGS: Breast tissue specimen does contain the breast biopsy marker in focus of architectural distortion IMPRESSION:: Breast tissue specimen does contain the breast biopsy marker and focus of architectural distortion
--- NOTE | 2024-09-19 09:00 | XR_ITS ---
Examination: Preop mammographically guided needle localization biopsy positive for carcinoma lesion upper outer right breast Right CC MLO views INDICATIONS: Biopsy-positive for carcinoma lesion upper outer right breast July 11, 2024, preop surgical excision today Date and time: September 19, 2024 0921 hours TECHNIQUE AND FINDINGS: Informed consent provided. Timeout performed. Skin prepped over the breast and hand hygiene 1% lidocaine administered for local anesthesia Right cc view obtained for localization of the breast biopsy marker clip 5 cm Kopans needle introduced cc view immediately adjacent to the biopsy clip, also confirmed on the corresponding right MLO view 1 cc methylene blue introduced Acquired introduced and needle withdrawn Estimated blood loss 1 cc IMPRESSION: Successful needle localization biopsy positive for carcinoma lesion upper outer right breast
--- NOTE | 2024-09-19 10:00 | XR_ITS ---
Examination: Nuclear medicine lymph glands imaging [place] lymph nodes study Date and time: September 19, 2024, 10:00 AM Diagnosis, biopsy positive for breast cancer lesion upper outer right breast August 21, 2024, preop surgical excision and lymph node dissection TECHNIQUE AND FINDINGS: Informed consent provided. Timeout performed. Skin prepped over the right breast and sterile drape applied hand hygiene 1% lidocaine administered for local anesthesia is subareolar 2.2 mCi technetium 99m filtered sagittal coronal and introduced retroareolar No imaging Estimated blood loss 0 cc IMPRESSION: Successful sentinel lymph node study
--- NOTE | 2024-09-19 10:49 | SUR.PREOP ---
Patient expressed gratitude for prayer before their procedure.
--- NOTE | 2024-09-19 14:53 | SUR.PHASEI ---
pt received from OR in recovery bay 7. pt asleep but responds to voice, breathing unlabored on nc 4l. v/s stable. pt dressing to right breast cdi, breast binder in place. report received from Dr. Alarcon and Aris MELENDREZ.
--- NOTE | 2024-09-19 15:06 | ESOP_ITS ---
Date of Procedure 09/19/24 Pre Op Diagnosis Infiltrating ductal carcinoma of the right breast at the upper and outer quadrant. Post Op Diagnosis Same Procedure Partial mastectomy after guidewire placement Theresa node biopsy of the right axilla Findings Patient is found to have a nonpalpable lesion which was localized by the radiologist with the guidewire. Methylene blue was injected and the patient also had sentinel technetium injection for sentinel node Procedure Description The patient was brought to the operating room LMA anesthesia was given. Then her right breast and chest wall on the right axilla were all prepped with ChloraPrep solution and draped in a sterile manner. Timeout was performed. I approached the sentinel node of the axilla first. Using a neoprobe I identified some uptake in the axilla. I made a 5 to 6 cm long incision over the right axilla and divided the subcutaneous tissue. I could not feel any lymph node but the neoprobe identified 4 lymph nodes those were small and all of them are less than a centimeter. They all appeared soft. After harvesting for lymph nodes no activity was found out and no other palpable lymph nodes were seen in the axilla. Axilla was then closed in 2 layers using 3-0 chromic and 3-0 plain. Skin was then closed with 4-0 subcuticular Monocryl. Then attention was turned onto the breast where the guidewire was inserted at the top at 12 o'clock position going down towards the nipple. I made a circumareolar incision after injecting with half percent Marcaine. Subcutaneous tissue was divided and using methylene blue I was able to remove the breast tissue which was not clearly palpable cancer. It was found just like fibroglandular tissue but no distinct mass was identified. But keeping the guidewire at the center I removed the breast tissues basically accomplishing a lumpectomy. Specimen radiograph showed that both the guidewire on the marker used for biopsy were removed intact. There were some spiculations but it is difficult to find out whether all the margins were clear. Therefore I removed some additional fibroglandular tissue especially lateral to the cancer. Then after checking for the bleeding points the subcutaneous tissue was closed with 3-0 chromic and the skin by 4-0 Monocryl subcu stitch. Dressing was applied with Adaptic and fluff and compression with Babatunde bandage was given. Patient tolerated procedure. Anesthesia other (General LMA) Pathology / specimen Other (1. 4 sentinel lymph nodes, #2 right breast cancer with guidewire, #3 additional breast tissues for clear margins) Estimated Blood Loss 50 Surgeon Elizabeth Khan MD Surgical Staff Operation Date: 09/19/24 13:15 Case Staff Anesthesiologist: Jonathan Alarcon RNreducing machine operator: Cat Palafox
--- NOTE | 2024-09-19 15:19 | SUR.PHASEI ---
pt able to tolerate oral fluids without difficulty swallowing or nausea/vomiting.
[2024-09-19] MEDS: ONDANSETRON INJ 2 MG/ML INJ 2 ML 4 MG IVP (15:55)
--- NOTE | 2024-09-19 16:07 | SUR.PHASEII ---
pt awake and alert, breathing unlabored on room air. v/s stable. pt dressing to right breast cdi, breast binder in place. pt able to ambulate to wheelchair with steady gait. d/c instructions given with daughter Tavia in room, all questions answered. pt d/c via wheelchair with all belongings.
--- NOTE | 2024-09-23 13:41 | PD.ANESPROG ---
Documentation for date of: 09/23/24 POST ANESTHESIA NOTE: Patient had GETA for R breast surgery on 09/19/24. I just called and spoke with her on the phone and she denied any problems from anesthesia and said You did a great job. Jonathan Alarcon MD Anesthesia Progress Note Progress Note Most recent Vital Signs: Last Vital Signs Temp 97.4 F 09/19/24 15:55 Pulse 88 09/19/24 15:55 Resp 15 09/19/24 15:55 BP 156/77 H 09/19/24 15:55 Pulse Ox 95 09/19/24 15:55 O2 Flow Rate 2 09/19/24 15:10
== END 2024-09-19 16:07 | disposition home or self-care (01) ==
PROVIDERS: PCP Family Medicine; Referring Provider Surgery; Visit Provider Surgery
PROC: (CPT 38900; principal; 2024-09-19 13:00)
DX: C50.411 Malignant neoplasm of upper-outer quadrant of right female breast (principal)
CPT/HCPCS: 38900; 19285; 19302; 36415; 76098; 80053; 85025; 85610; 85730; 88361; A4217; A4648; A4649; A9541; J0131; J0360; J1100; J1171; J2405; J2704; J3010; J3490; J1596; J1805

== ENCOUNTER 2024-10-07 08:52 | Outpatient (RCR) | payer MEDICARE, OTHER, SELFPAY ==
--- NOTE | 2024-09-25 11:10 | CTCCONSULT_ITS ---
[facility] [address], [place] [address] Consultation Note Date: 09/25/2024 MR#: [id number] Name: WANDA JANSEN : 1945 Dx: C50.411 Malignant neoplasm of upper-outer quadrant of right female breast Referring physician. Salo Elias MD Reason for consultation. Patient with recent diagnosis of right breast CA referred to the cancer treatment center. History of Present Illness: Patient is a 79-year-old lady who had architectural distortion mammogram 07/24/2024 underwent a biopsy of the right upper quadrant of breast lesion 08/21/2024 revealing 0.5 cm ER/ND positive HER2 negative invasive ductal carcinoma. On 09/19/2024 patient underwent partial mastectomy and sentinel biopsy performed by Dr. Lowe at [facility] results are not immediately available. Patient referred to the cancer treatment center. Past Medical History: Hypertension hyperlipidemia hyperglycemia Meds. Lisinopril ibuprofen hydrochlorothiazide Allergies estrogen Family history. Father of bone cancer age 80s Social History: Non-smoker nondrinker Review of Systems: Noncontributory Physical Exam: General: Adequate nourished appearing lady no acute distress HEENT: Atraumatic normocephalic extraocular is intact no oral lesion no cervical or supraclavicular adenopathy CV: Right breast area appears healing well along with the axillary scar. ABD: Soft no organomegaly or tenderness EXT: No signs of clubbing or edema Assessment:#1. Right breast CA ER/ND positive HER2 negative, underwent right partial mastectomy sentinel removal 09/19/2024 results not immediately available to us. # Has follow-up with Dr. Rai medical oncologist next 2 weeks. #3. Patient also has follow-up with me in a month. Thank you for allowing us to evaluate this patient. Cc: Salo Elias MD Electronically signed by: Zyead Naidu MD, JAYR 09/25/2024 11:07 AM
--- NOTE | 2024-10-07 13:09 | CTCCONSULT_ITS ---
Patient: WANDA JANSEN : 1945 MR#: [id number] Page 2 of 4 CONSULTATION NOTE DATE OF CONSULTATION: 10/07/2024 NAME: WANDA JANSEN ACCOUNT: [id number] : 1945 AGE: 79 REFERRING PHYSICIAN: Salo Elias MD PRIMARY PHYSICIAN: Salo Elias MD REASON FOR VISIT: Breast cancer ONCOLOGY HISTORY: DIAGNOSIS: Malignant neoplasm of upper-outer quadrant of right female breast [ICD10] C50.411 Invasive ductal carcinoma of right breast ER more than 90% [place] more than 80% HER2 1+ Ki-67 less than 5% DATE OF DIAGNOSIS: 08/21/2024 STAGE/TNM: Invasive ductal carcinoma T1 N0 M0 stage I TREATMENT HISTORY: Care?Plan Start?Date Cycle Day Intent PROLia?60mg?every?6?months 10/07/2024 1 180 Maintenance HISTORY OF PRESENT ILLNESS: 79-year-old female with a new diagnosis of breast cancer. Patient was diagnosed after the mammogram. Patient underwent lumpectomy and sentinel lymph node biopsy and is healed well. Patient was not offered radiation secondary to her old age. Patient have mild osteopenia. Patient is very active and take care of her ADLs and live alone. OTHER MEDICAL HISTORY/CONDITIONS: Right invasive ductal breast cancer - dx 08/21/24 HTN Right breast partial mastecomy with sentinel node biopsy - 09/19/24 Right TKA - 05/12/24 - Dr. 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 Tobacco Use:?Quit 30yrs ago - Smoked 1/2 PPD x 25yrs ETOH?Use:?Socailly Drug?Note:?Denies Social?History?Note:?Lives?alone [employer] HISTORY: Menarche?-?Age:?11 Hormone?Use:?Premarin for about 1 year; no control medication :?1 Live?Births:?1 Age?1st?:?24 MEDICATIONS: 1. Arimidex - 1 mg 90 tab Daily 2. Calcium + Vitamin D - 600 mg calcium- 200 unit 2 tab Daily 3. Cholest Off - 450 mg 1 tab Twice a Day 4. Fish OiL - 1,200 (144-216) mg 1 Capsule Daily 5. garlic - 500 mg 4 tab Daily 6. lisinopril - 40 mg 1 tab Daily 7. PreserVision AREDS 2 Plus MV - 200 mcg-15 mcg- 5 mg-1 mg 1 Capsule Daily Medications Last Reconciled by Liz Elena RN on 10/07/2024 ALLERGIES: No Known Drug Allergies REVIEW OF SYSTEMS: A complete 14-point review of systems was performed and is negative except as noted in interval history. PHYSICAL EXAMINATION: VITAL SIGNS: Temperature?99, B/P?177/71, Height?65.5?inches, Oxygen?Saturation?98% Weight?161?lbs (Change?since?09/25/24:?-7?lbs) PAIN: 1 - Between no and mild pain ECOG Performance Status: 1 - Symptomatic; ambulatory; restricted in strenuous activity GENERAL APPEARANCE: Appears well, in no apparent distress, appropriately interactive. HEENT: Normocephalic, no temporal wasting, normal conjunctiva, no scleral icterus, normal hearing, lips without lesions, neck normal range of motion. CARDIOVASCULAR: Not assessed. PULMONARY: Normal respiratory effort, no respiratory distress or use of accessory muscles, speaking in full sentences, no tachypnea. EXTREMITIES: No pedal edema or cyanosis. SKIN: Normal skin appearance. NEUROLOGIC: Alert and oriented x4. PSHYCHIATRIC: Appropriate affect, mood normal, behavior normal, intact thought and speech. LABORATORY DATA: I have personally reviewed and interpreted each of the patient?s relevant lab tests, abnormal findings are below: Date 09/18/24 ??WHITE?BLOOD?COUNT?(Thou/mm3) 8.6 ??RED?BLOOD?COUNT?(Miln/mm3) 4.94 ??HEMOGLOBIN?(gm/dl) 14.2 ??HEMATOCRIT?(%) 42.0 ??PLATELET?COUNT?(Thou/mm3) 329 ??NEUTROPHILS?%,?AUTO?(%) 65 ??LYMPH?%,?AUTO?(%) 23 ??NEUTROPHILS,?AUTO?(Thou/mm3) 5.5 ??GLUCOSE,RANDOM?(mg/dL) 154?H ??BLOOD?UREA?NITROGEN?(mg/dL) 15 ??CREATININE?(mg/dL) 0.90 ??SODIUM?(mmol/L) 143 ??POTASSIUM?(mmol/L) 4.4 ??CHLORIDE?(mmol/L) 107 ??AST/SGOT?(Unit/L) 15 ??ALT/SGPT?(Unit/L) 10 ??ALKALINE?PHOSPHATASE?(Unit/L) 94 ??BILIRUBIN,?TOTAL?(mg/dL) 0.4 ??PROTEIN?TOTAL?(gm/dl) 6.5 ??ALBUMIN,?SERUM?(gm/dl) 4.2 ??GLOBULIN?(gm/dl) 2.3 ??ALBUMIN/GLOBULIN?RATIO 1.8 ??CALCIUM,?SERUM?(mg/dL) 9.0 ??CALCIUM?SERUM?(CORRECTED)?(mg/dL) 9.0 ASSESSMENT/PLAN: #1 right-sided breast cancer ER/[place] positive HER2 1+ Stage I breast cancer ER/[place] positive Will start on antiendocrine therapy with anastrozole Plan is to do antiendocrine therapy for 5-year and may extend to 10 years depending on tolerance Discussed side effects and patient is willing to take medicine RTC in 1 to 2 months to discuss any side effects #2 osteopenia Bone density reviewed from June 2024 Patient have osteopenia in hips with normal density in the spine Advised to take calcium and vitamin D which patient takes with fatty food Will start on Prolia to reduce risk of osteoporosis especially after starting on anastrozole Patient have dentures so no dental clearance needed ORDERS: Order # Description [id number] Comprehensive Metabolic Panel - 12 + CBC with Auto Diff [id number] MD Follow Up 6 Month [id number] Basic Metabolic Panel [id number] Basic Metabolic Panel RETURN TO CLINIC: BILLING AND COMPLIANCE: I reviewed external records from providers outside my specialty as summarized above. I spent a total of 50 minutes on this patient?s care on the day of their visit excluding time spent related to any billed procedures. This time includes time spent with the patient as well as time spent documenting in the medical record, reviewing patients records and tests, obtaining history, placing orders, communicating with other healthcare professionals, counseling the patient, family or caregiver, and/or care coordination for the diagnoses above. Electronically Signed by: Dionicio Rai MD T: 1:07 PM CC: PCP: Salo Elias Referring: Salo Elias This document was completed utilizing speech recognition software. Grammatical errors, random word insertions, pronoun errors, and incomplete sentences are an occasional consequence of this system due to software limitations, ambient noise, and hardware issues. Any formal questions or concerns about the content, text or information contained within the body of this dictation should be directly addressed to the provider for clarification.
== END 2024-10-20 23:59 | disposition home or self-care (01) ==
LOC: SCTC 08:52
PROVIDERS: PCP Family Medicine; Referring Provider Family Medicine; Visit Provider Internal Medicine Hematology & Oncology
DX: C50.411 Malignant neoplasm of upper-outer quadrant of right female breast (principal); Z17.0 Estrogen receptor positive status [ER+]; Z17.21 Progesterone receptor positive status; Z17.32 Human epidermal growth factor receptor 2 negative status; Z90.11 Acquired absence of right breast and nipple; M85.88 Other specified disorders of bone density and structure, other site
CPT/HCPCS: 99213; G0463

== ENCOUNTER → 2024-10-27 | Outpatient (CLI) | payer MEDICARE, OTHER, SELFPAY ==
[2024-10-27 12:23] LABS: Basophils # (Auto) 0.0 Thou/mm3 (0.0-0.2); Basophils % (Auto) 0 % (0-2.5); Eosinophils # (Auto) 0.2 Thou/mm3 (0.0-0.5); Eosinophils % (Auto) 3 % (0-10); Hematocrit 41.5 % (36.0-46.0); Hemoglobin 14.3 g/dL (12.0-16.0); Immature Granulocytes Auto 0.03 Thou/mm3 (0.00-0.00); Lymphocytes # (Auto) 2.1 Thou/mm3 (1.0-4.8); Lymphocytes % (Auto) 24 % (10-50); Mean Corpuscular HGB Conc 34.5 g/dl (31.0-37.0); Mean Corpuscular Hemoglobin 29.6 pg (25.0-35.0); Mean Corpuscular Volume 86 fL (80-100); Monocytes # (Auto) 0.8 Thou/mm3 (0.0-0.8); Monocytes % (Auto) 9 % (0-12); Neutrophils # (Auto) 5.8 Thou/mm3 (1.8-7.7); Neutrophils % (Auto) 64 % (37-80); Nucleated Red Blood Cell # 0.00 Thou/mm3 (0.00-0.00); Nucleated Red Blood Cell % 0 /100 WBC (0); Platelet Count 346 Thou/mm3 (140-440); RDW Standard Deviation 42.4 fL (36.4-46.3); Red Blood Count 4.83 Miln/mm3 (4.00-5.20); White Blood Count 9.1 Thou/mm3 (3.6-11.0)
[2024-10-27 12:26] LABS: Alanine Aminotransferase 12 U/L (10-49); Albumin, Serum 4.4 gm/dL (3.4-4.8); Albumin/Globulin Ratio 1.8 (1.2-2.2); Alkaline Phosphatase 92 U/L (46-116); Anion Gap 9 (7-16); Aspartate Amino Transferase 16 U/L (0-34); BUN/Creatinine Ratio 21 Ratio (12-20); Bilirubin,Total 0.4 mg/dL (0.3-1.2); Blood Urea Nitrogen 19 mg/dL (9-23); Calcium 10.2 mg/dL (8.3-10.6); Calcium (Corrected) 10.2 mg/dL (8.5-10.1); Carbon Dioxide 27.7 mMol/L (20.0-31.0); Chloride 109 mMol/L (98-107); Creatinine (Component) 0.9 mg/dL (0.6-1.3); Globulin 2.4 gm/dL (2.3-3.5); Glucose 108 mg/dL (74-106); Osmolality,Calculated 293 (275-295); Potassium 4.1 mMol/L (3.4-5.1); Sodium 146 mMol/L (136-145); Total Protein 6.8 gm/dL (5.7-8.2); eGFR > 60 See Note
== END | disposition home or self-care (01) ==
PROVIDERS: PCP Internal Medicine Hematology & Oncology; Referring Provider Family Medicine; Visit Provider Family Medicine
DX: C50.411 Malignant neoplasm of upper-outer quadrant of right female breast (principal)
CPT/HCPCS: 36415; 80053; 85025

== ENCOUNTER 2024-10-29 09:54 | Outpatient (RCR) | payer MEDICARE, OTHER, SELFPAY | END 2024-11-20 23:59 | disposition home or self-care (01) | LOC: SCTC 09:54 | PROVIDERS: Referring Provider Internal Medicine Hematology & Oncology; Visit Provider Internal Medicine Hematology & Oncology | DX: M85.80 Other specified disorders of bone density and structure, unspecified site (principal); C50.411 Malignant neoplasm of upper-outer quadrant of right female breast; Z17.0 Estrogen receptor positive status [ER+]; Z17.21 Progesterone receptor positive status; Z17.32 Human epidermal growth factor receptor 2 negative status; Z90.11 Acquired absence of right breast and nipple; Z79.811 Long term (current) use of aromatase inhibitors | CPT/HCPCS: 36591; 96372; J0897 ==

== ENCOUNTER → 2024-12-24 | Outpatient (CLI) | payer MEDICARE, OTHER, SELFPAY ==
[2024-12-24 10:25] LABS: Basophils # (Auto) 0.0 Thou/mm3 (0.0-0.2); Basophils % (Auto) 0 % (0-2.5); Eosinophils # (Auto) 0.2 Thou/mm3 (0.0-0.5); Eosinophils % (Auto) 2 % (0-10); Hematocrit 40.8 % (36.0-46.0); Hemoglobin 13.4 g/dL (12.0-16.0); Immature Granulocytes Auto 0.03 Thou/mm3 (0.00-0.00); Lymphocytes # (Auto) 1.7 Thou/mm3 (1.0-4.8); Lymphocytes % (Auto) 20 % (10-50); Mean Corpuscular HGB Conc 32.8 g/dl (31.0-37.0); Mean Corpuscular Hemoglobin 29.5 pg (25.0-35.0); Mean Corpuscular Volume 90 fL (80-100); Monocytes # (Auto) 0.7 Thou/mm3 (0.0-0.8); Monocytes % (Auto) 9 % (0-12); Neutrophils # (Auto) 6.0 Thou/mm3 (1.8-7.7); Neutrophils % (Auto) 69 % (37-80); Nucleated Red Blood Cell # 0.00 Thou/mm3 (0.00-0.00); Nucleated Red Blood Cell % 0 /100 WBC (0); Platelet Count 338 Thou/mm3 (140-440); RDW Standard Deviation 42.6 fL (36.4-46.3); Red Blood Count 4.55 Miln/mm3 (4.00-5.20); White Blood Count 8.7 Thou/mm3 (3.6-11.0)
[2024-12-24 10:35] LABS: INR 1.0 (0.9-1.3); Partial Thromboplastin Time 25.2 Seconds (22.0-36.0); Prothrombin Time 11.2 Seconds (9.0-12.2)
[2024-12-24 10:47] LABS: Anion Gap 8 (7-16); BUN/Creatinine Ratio 20 Ratio (12-20); Blood Urea Nitrogen 18 mg/dL (9-23); Calcium 10.0 mg/dL (8.3-10.6); Carbon Dioxide 26.1 mMol/L (20.0-31.0); Chloride 109 mMol/L (98-107); Creatinine (Component) 0.9 mg/dL (0.6-1.3); Glucose 174 mg/dL (74-106); Osmolality,Calculated 290 (275-295); Potassium 4.3 mMol/L (3.4-5.1); Sodium 143 mMol/L (136-145); eGFR > 60 See Note
== END | disposition home or self-care (01) ==
LOC: COPL 08:54
PROVIDERS: PCP Internal Medicine; Referring Provider Internal Medicine; Visit Provider Internal Medicine
DX: I25.10 Atherosclerotic heart disease of native coronary artery without angina pectoris (principal); I48.91 Unspecified atrial fibrillation
CPT/HCPCS: 36415; 80048; 85025; 85610; 85730

== ENCOUNTER → 2024-12-25 | Outpatient (CLI) | payer MEDICARE, OTHER, SELFPAY ==
[2024-12-25 15:11] LABS: Glucose Estimated Average 137 mg/dL (80-131); Hemoglobin A1C 6.4 % Hgb (4.8-6.0)
== END | disposition home or self-care (01) ==
PROVIDERS: PCP Student in an Organized Health Care Education/Training Program; Referring Provider Student in an Organized Health Care Education/Training Program; Visit Provider Student in an Organized Health Care Education/Training Program
DX: E11.9 Type 2 diabetes mellitus without complications (principal)
CPT/HCPCS: 36415; 83036

== ENCOUNTER → 2025-02-04 | Outpatient (CLI) | payer MEDICARE, OTHER, SELFPAY ==
[2025-02-04 13:47] LABS: Basophils # (Auto) 0.0 Thou/mm3 (0.0-0.2); Basophils % (Auto) 0 % (0-2.5); Eosinophils # (Auto) 0.2 Thou/mm3 (0.0-0.5); Eosinophils % (Auto) 2 % (0-10); Hematocrit 39.0 % (36.0-46.0); Hemoglobin 13.0 g/dL (12.0-16.0); Immature Granulocytes Auto 0.04 Thou/mm3 (0.00-0.00); Lymphocytes # (Auto) 2.7 Thou/mm3 (1.0-4.8); Lymphocytes % (Auto) 28 % (10-50); Mean Corpuscular HGB Conc 33.3 g/dl (31.0-37.0); Mean Corpuscular Hemoglobin 29.3 pg (25.0-35.0); Mean Corpuscular Volume 88 fL (80-100); Monocytes # (Auto) 0.9 Thou/mm3 (0.0-0.8); Monocytes % (Auto) 9 % (0-12); Neutrophils # (Auto) 5.8 Thou/mm3 (1.8-7.7); Neutrophils % (Auto) 60 % (37-80); Nucleated Red Blood Cell # 0.00 Thou/mm3 (0.00-0.00); Nucleated Red Blood Cell % 0 /100 WBC (0); Platelet Count 361 Thou/mm3 (140-440); RDW Standard Deviation 40.4 fL (36.4-46.3); Red Blood Count 4.44 Miln/mm3 (4.00-5.20); White Blood Count 9.6 Thou/mm3 (3.6-11.0)
[2025-02-04 14:06] LABS: Alanine Aminotransferase 9 U/L (10-49); Albumin, Serum 4.4 gm/dL (3.4-4.8); Albumin/Globulin Ratio 1.7 (1.2-2.2); Alkaline Phosphatase 76 U/L (46-116); Anion Gap 9 (7-16); Aspartate Amino Transferase 16 U/L (0-34); BUN/Creatinine Ratio 16 Ratio (12-20); Bilirubin,Total 0.3 mg/dL (0.3-1.2); Blood Urea Nitrogen 14 mg/dL (9-23); Calcium 9.6 mg/dL (8.3-10.6); Calcium (Corrected) 9.6 mg/dL (8.5-10.1); Carbon Dioxide 27.7 mMol/L (20.0-31.0); Chloride 106 mMol/L (98-107); Creatinine (Component) 0.9 mg/dL (0.6-1.3); Globulin 2.6 gm/dL (2.3-3.5); Glucose 126 mg/dL (74-106); Osmolality,Calculated 287 (275-295); Potassium 4.2 mMol/L (3.4-5.1); Sodium 143 mMol/L (136-145); Total Protein 7.0 gm/dL (5.7-8.2); eGFR > 60 See Note
== END | disposition home or self-care (01) ==
LOC: COPL 13:11
PROVIDERS: PCP Student in an Organized Health Care Education/Training Program; Referring Provider Internal Medicine Hematology & Oncology; Visit Provider Internal Medicine Hematology & Oncology
DX: C50.411 Malignant neoplasm of upper-outer quadrant of right female breast (principal)
CPT/HCPCS: 36415; 80053; 85025

== ENCOUNTER 2025-02-11 10:25 | Outpatient (RCR) | payer MEDICARE, OTHER, SELFPAY ==
--- NOTE | 2025-02-11 13:12 | CTCFLWUP_ITS ---
Patient: WANDA JANSEN : 1945 Page 2 of 4 FOLLOW UP NOTE DATE OF SERVICE: 02/11/2025 NAME: WANDA JANSEN ACCOUNT: [id number] : 1945 AGE: 80 INTERVAL HISTORY: Patient is on anastrozole for her right breast cancer. Patient states that she was feeling very fatigued and tired and stopped taking medicine. Since stopping she is feeling better. She takes her calcium and vitamin D and received a Prolia. ONCOLOGY HISTORY: DIAGNOSIS: Malignant neoplasm of upper-outer quadrant of right female breast [ICD10] C50.411 Invasive ductal carcinoma of right breast ER more than 90% [place] more than 80% HER2 1+ Ki-67 less than 5% DATE OF DIAGNOSIS: 08/21/2024 STAGE/TNM: Invasive ductal carcinoma T1 N0 M0 stage I TREATMENT HISTORY: Care?Plan Start?Date Cycle Day Intent PROLia?60mg?every?6?months 10/29/2024 1 180 Maintenance HISTORY OF PRESENT ILLNESS: 80-year-old female with a new diagnosis of breast cancer. Patient was diagnosed after the mammogram. Patient underwent lumpectomy and sentinel lymph node biopsy and is healed well. Patient was not offered radiation secondary to her old age. Patient have mild osteopenia. Patient is very active and take care of her ADLs and live alone. OTHER MEDICAL HISTORY/CONDITIONS: Right invasive ductal breast cancer - dx 08/21/24 HTN Right breast partial mastecomy with sentinel node biopsy - 09/19/24 Right TKA - 05/12/24 - Dr. 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 Arimidex - 1 mg 90 tab Daily 2. Calcium + Vitamin D - 600 mg calcium- 200 unit 2 tab Daily 3. Cholest Off - 450 mg 1 tab Twice a Day 4. Fish OiL - 1,200 (144-216) mg 1 Capsule Daily 5. garlic - 500 mg 4 tab Daily 6. lisinopril - 40 mg 1 tab Daily 7. PreserVision AREDS 2 Plus MV - 200 mcg-15 mcg- 5 mg-1 mg 1 Capsule Daily 8. tamoxifen - 10 mg 1 tab Daily Medications Last Reconciled by Nevin Montoya MD on 02/11/2025 ALLERGIES: No Known Drug Allergies REVIEW OF SYSTEMS: A complete 14-point review of systems was performed and is negative except as noted in interval history. PHYSICAL EXAMINATION: VITAL SIGNS: Temperature?99.2, B/P?181/80, Oxygen?Saturation?94% Weight?169?lbs PAIN: 0 - No pain ECOG Performance Status: 0 - Asymptomatic and fully active GENERAL APPEARANCE: Appears well, in no apparent distress, appropriately interactive. HEENT: Normocephalic, no temporal wasting, normal conjunctiva, no scleral icterus, normal hearing, lips without lesions, neck normal range of motion. CARDIOVASCULAR: Not assessed. PULMONARY: Normal respiratory effort, no respiratory distress or use of accessory muscles, speaking in full sentences, no tachypnea. EXTREMITIES: No pedal edema or cyanosis. SKIN: Normal skin appearance. NEUROLOGIC: Alert and oriented x4. PSHYCHIATRIC: Appropriate affect, mood normal, behavior normal, intact thought and speech. LABORATORY DATA: I have personally reviewed and interpreted each of the patient?s relevant lab tests, abnormal findings are below: Date 12/24/24 02/04/25 ??WHITE?BLOOD?COUNT?(Thou/mm3) 8.7 9.6 ??RED?BLOOD?COUNT?(Miln/mm3) 4.55 4.44 ??HEMOGLOBIN?(gm/dl) 13.4 13.0 ??HEMATOCRIT?(%) 40.8 39.0 ??PLATELET?COUNT?(Thou/mm3) 338 361 ??NEUTROPHILS?%,?AUTO?(%) 69 60 ??LYMPH?%,?AUTO?(%) 20 28 ??NEUTROPHILS,?AUTO?(Thou/mm3) 6.0 5.8 ??GLUCOSE,RANDOM?(mg/dL) 174?H 126?H ??BLOOD?UREA?NITROGEN?(mg/dL) 18 14 ??CREATININE?(mg/dL) 0.90 0.90 ??SODIUM?(mmol/L) 143 143 ??POTASSIUM?(mmol/L) 4.3 4.2 ??CHLORIDE?(mmol/L) 109?H 106 ??CrCl?(CandG)?(ml/min) 51.57 51.57 ??AST/SGOT?(Unit/L) ? 16 ??ALT/SGPT?(Unit/L) ? 9?L ??ALKALINE?PHOSPHATASE?(Unit/L) ? 76 ??BILIRUBIN,?TOTAL?(mg/dL) ? 0.3 ??PROTEIN?TOTAL?(gm/dl) ? 7.0 ??ALBUMIN,?SERUM?(gm/dl) ? 4.4 ??GLOBULIN?(gm/dl) ? 2.6 ??ALBUMIN/GLOBULIN?RATIO ? 1.7 ??CALCIUM,?SERUM?(mg/dL) 10.0 9.6 ??CALCIUM?SERUM?(CORRECTED)?(mg/dL) ? 9.6 ASSESSMENT/PLAN: #1 right-sided breast cancer ER/[place] positive HER2 1+ Stage I breast cancer ER/[place] positive Will switch therapy to tamoxifen 10 mg Discussed side effects Return to clinic in 4 weeks to see tolerance #2 osteopenia Bone density reviewed from June 2024 Patient have osteopenia in hips with normal density in the spine Advised to take calcium and vitamin D which patient takes with fatty food Continue Prolia every 6 months ORDERS: Order # Description [id number] Follow Up 4 Week [id number] Basic Metabolic Panel [id number] Basic Metabolic Panel RETURN TO CLINIC: I reviewed the diagnosis, prognosis, and recommended treatment/procedure options with the patient (and/or their legal farm loan representative), including the potential benefits, risks, side effects and alternative therapies. We also discussed the option of no treatment and the possibility of clinical trial participation, if applicable. All questions were addressed, and they demonstrated understanding. They provided informed consent to proceed with the proposed plan of care. BILLING AND COMPLIANCE: I reviewed external records from providers outside my specialty as summarized above. I spent a total of 50 minutes on this patient?s care on the day of their visit excluding time spent related to any billed procedures. This time includes time spent with the patient as well as time spent documenting in the medical record, reviewing patients records and tests, obtaining history, placing orders, communicating with other healthcare professionals, counseling the patient, family or caregiver, and/or care coordination for the diagnoses above. Electronically Signed by: Dionicio Rai MD T: 1:09 PM CC: PCP: No Primary/family, Physician Referring: Dionicio Rai This document was completed utilizing speech recognition software. Grammatical errors, random word insertions, pronoun errors, and incomplete sentences are an occasional consequence of this system due to software limitations, ambient noise, and hardware issues. Any formal questions or concerns about the content, text or information contained within the body of this dictation should be directly addressed to the provider for clarification.
== END 2025-02-20 23:59 | disposition home or self-care (01) ==
LOC: SCTC 10:25
PROVIDERS: Referring Provider Internal Medicine Hematology & Oncology; Visit Provider Internal Medicine Hematology & Oncology
DX: C50.411 Malignant neoplasm of upper-outer quadrant of right female breast (principal); Z17.0 Estrogen receptor positive status [ER+]; Z17.21 Progesterone receptor positive status; Z17.32 Human epidermal growth factor receptor 2 negative status; Z79.810 Long term (current) use of selective estrogen receptor modulators (SERMs); M85.80 Other specified disorders of bone density and structure, unspecified site
CPT/HCPCS: 99212; G0463

== ENCOUNTER 2025-03-16 09:53 | Outpatient (RCR) | payer MEDICARE, OTHER, SELFPAY ==
--- NOTE | 2025-03-17 08:37 | CTCFLWUP_ITS ---
Patient: WANDA JANSEN : 1945 Page 2 of 4 FOLLOW UP NOTE DATE OF SERVICE: 03/16/2025 NAME: WANDA JANSEN ACCOUNT: [id number] : 1945 AGE: 80 INTERVAL HISTORY: Patient at the last visit was switched from anastrozole to tamoxifen. Patient says she took tamoxifen for few days and then stopped taking it because of the risk of stroke and blood clotS. Patient did not take tamoxifen. She is requesting to change treatment. Patient continues to take her vitamin D3 and follow-up with the Prolia. Patient's lives alone and take care of her ADLs ONCOLOGY HISTORY: DIAGNOSIS: Malignant neoplasm of upper-outer quadrant of right female breast [ICD10] C50.411 Invasive ductal carcinoma of right breast ER more than 90% AK more than 80% HER2 1+ Ki-67 less than 5% DATE OF DIAGNOSIS: 08/21/2024 STAGE/TNM: Invasive ductal carcinoma T1 N0 M0 stage I TREATMENT HISTORY: Care?Plan Start?Date Cycle Day Intent PROLia?60mg?every?6?months 10/29/2024 1 180 Maintenance HISTORY OF PRESENT ILLNESS: 80-year-old female with a new diagnosis of breast cancer. Patient was diagnosed after the mammogram. Patient underwent lumpectomy and sentinel lymph node biopsy and is healed well. Patient was not offered radiation secondary to her old age. Patient have mild osteopenia. Patient is very active and take care of her ADLs and live alone. OTHER MEDICAL HISTORY/CONDITIONS: Right invasive ductal breast cancer - dx 08/21/24 HTN Right breast partial mastecomy with sentinel node biopsy - 09/19/24 Right TKA - 05/12/24 - Dr. Recinos Bladder suspension and hysterctomy - 2016 FAMILY HISTORY: Cancer History:?Mat aunt breast - 70's; Pat aunt - breast 70's SOCIAL HISTORY: Occupational?History:?Retired - Level [employer] Education?Level:?Vocational School Graduate Marital?Status:? Tobacco Use:?Quit 30yrs ago - Smoked 1/2 PPD x 25yrs ETOH?Use:?Socailly Drug?Note:?Denies Social?History?Note:?Lives?alone [employer] HISTORY: Menarche?-?Age:?11 Hormone?Use:?Premarin for about 1 year; no control medication :?1 Live?Births:?1 Age?1st?:?24 MEDICATIONS: 1. Calcium + Vitamin D - 600 mg calcium- 200 unit 2 tab Daily 2. Cholest Off - 450 mg 1 tab Twice a Day 3. Fish OiL - 1,200 (144-216) mg 1 Capsule Daily 4. garlic - 500 mg 4 tab Daily 5. letrozole - 2.5 mg 1 tab Daily 6. lisinopril - 40 mg 1 tab Daily 7. PreserVision AREDS 2 Plus MV - 200 mcg-15 mcg- 5 mg-1 mg 1 Capsule Daily Medications Last Reconciled by Nevin Montoya MD on 03/16/2025 ALLERGIES: No Known Drug Allergies REVIEW OF SYSTEMS: A complete 14-point review of systems was performed and is negative except as noted in interval history. PHYSICAL EXAMINATION: VITAL SIGNS: Temperature?98.6, B/P?163/90, Oxygen?Saturation?95% Weight?168.4?lbs PAIN: 0 - No pain ECOG Performance Status: 1 - Symptomatic; ambulatory; restricted in strenuous activity GENERAL APPEARANCE: Appears well, in no apparent distress, appropriately interactive. HEENT: Normocephalic, no temporal wasting, normal conjunctiva, no scleral icterus, normal hearing, lips without lesions, neck normal range of motion. CARDIOVASCULAR: Not assessed. PULMONARY: Normal respiratory effort, no respiratory distress or use of accessory muscles, speaking in full sentences, no tachypnea. EXTREMITIES: No pedal edema or cyanosis. SKIN: Normal skin appearance. NEUROLOGIC: Alert and oriented x4. PSHYCHIATRIC: Appropriate affect, mood normal, behavior normal, intact thought and speech. LABORATORY DATA: I have personally reviewed and interpreted each of the patient?s relevant lab tests, abnormal findings are below: Date 12/24/24 02/04/25 ??WHITE?BLOOD?COUNT?(Thou/mm3) 8.7 9.6 ??RED?BLOOD?COUNT?(Miln/mm3) 4.55 4.44 ??HEMOGLOBIN?(gm/dl) 13.4 13.0 ??HEMATOCRIT?(%) 40.8 39.0 ??PLATELET?COUNT?(Thou/mm3) 338 361 ??NEUTROPHILS?%,?AUTO?(%) 69 60 ??LYMPH?%,?AUTO?(%) 20 28 ??NEUTROPHILS,?AUTO?(Thou/mm3) 6.0 5.8 ??GLUCOSE,RANDOM?(mg/dL) 174?H 126?H ??BLOOD?UREA?NITROGEN?(mg/dL) 18 14 ??CREATININE?(mg/dL) 0.90 0.90 ??SODIUM?(mmol/L) 143 143 ??POTASSIUM?(mmol/L) 4.3 4.2 ??CHLORIDE?(mmol/L) 109?H 106 ??CrCl?(CandG)?(ml/min) 51.57 51.57 ??AST/SGOT?(Unit/L) ? 16 ??ALT/SGPT?(Unit/L) ? 9?L ??ALKALINE?PHOSPHATASE?(Unit/L) ? 76 ??BILIRUBIN,?TOTAL?(mg/dL) ? 0.3 ??PROTEIN?TOTAL?(gm/dl) ? 7.0 ??ALBUMIN,?SERUM?(gm/dl) ? 4.4 ??GLOBULIN?(gm/dl) ? 2.6 ??ALBUMIN/GLOBULIN?RATIO ? 1.7 ??CALCIUM,?SERUM?(mg/dL) 10.0 9.6 ??CALCIUM?SERUM?(CORRECTED)?(mg/dL) ? 9.6 ASSESSMENT/PLAN: #1 right-sided breast cancer ER/AK positive HER2 1+ Stage I breast cancer ER/AK positive Switch therapy to letrozole 2.5 mg daily RTC in 2 months to see response to treatment and tolerance #2 osteopenia Bone density reviewed from June 2024 Patient have osteopenia in hips with normal density in the spine Advised to take calcium and vitamin D which patient takes with fatty food Continue Prolia every 6 months ORDERS: Order # Description [id number] Basic Metabolic Panel [id number] Basic Metabolic Panel RETURN TO CLINIC: I reviewed the diagnosis, prognosis, and recommended treatment/procedure options with the patient (and/or their legal customer care representative), including the potential benefits, risks, side effects and alternative therapies. We also discussed the option of no treatment and the possibility of clinical trial participation, if applicable. All questions were addressed, and they demonstrated understanding. They provided informed consent to proceed with the proposed plan of care. BILLING AND COMPLIANCE: I reviewed external records from providers outside my specialty as summarized above. I spent a total of 50 minutes on this patient?s care on the day of their visit excluding time spent related to any billed procedures. This time includes time spent with the patient as well as time spent documenting in the medical record, reviewing patients records and tests, obtaining history, placing orders, communicating with other healthcare professionals, counseling the patient, family or caregiver, and/or care coordination for the diagnoses above. Electronically Signed by: Dionicio Rai MD T: 8:35 AM CC: PCP: Dionicio Rai Referring: Dionicio Rai This document was completed utilizing speech recognition software. Grammatical errors, random word insertions, pronoun errors, and incomplete sentences are an occasional consequence of this system due to software limitations, ambient noise, and hardware issues. Any formal questions or concerns about the content, text or information contained within the body of this dictation should be directly addressed to the provider for clarification.
== END 2025-03-22 23:59 | disposition home or self-care (01) ==
LOC: SCTC 09:53
PROVIDERS: PCP Student in an Organized Health Care Education/Training Program; Referring Provider Internal Medicine Hematology & Oncology; Visit Provider Internal Medicine Hematology & Oncology
DX: C50.411 Malignant neoplasm of upper-outer quadrant of right female breast (principal); Z17.0 Estrogen receptor positive status [ER+]; Z17.21 Progesterone receptor positive status; Z17.32 Human epidermal growth factor receptor 2 negative status; Z60.2 Problems related to living alone; Z90.11 Acquired absence of right breast and nipple; M85.88 Other specified disorders of bone density and structure, other site; Z79.811 Long term (current) use of aromatase inhibitors
CPT/HCPCS: 99212; G0463